=== PATIENT | female | born 1985 | race African-American/Black ===

== ENCOUNTER 2020-02-07 10:01 | Outpatient (CLI) | payer OTHER, SELFPAY ==
--- NOTE | ~2020-02-07 | XR_ITS ---
XR chest 2V DATE: 02/07/2020 10:18 INDICATION: Midline chest pain, discomfort. TECHNIQUE: PA and lateral views COMPARISON: None FINDINGS: Normal heart size. No hilar or mediastinal enlargement. Asymmetric density overlying the left apical region, of uncertain significance. Follow up chest radiographs are recommended, with CT thorax if this does not resolve. The lungs other paige appear clear of infiltrate or consolidation. No pleural effusion or pulmonary vascular congestio n or pneumothorax. Normal heart size. No hilar or mediastinal enlargement. IMPRESSION: Ill-defined asymmetric density overlying left apical area; recommend follow-up chest radi ographs, with CT thorax if this persists Reviewed, dictated and finalized at location A. IMPRESSION: Ill-defined asymmetric density overlying left apical area; recommen d follow-up chest radiographs, with CT thorax if this persists
== END 2020-02-07 10:02 | disposition home or self-care (01) ==
PROVIDERS: PCP Nurse Practitioner Family; Visit Provider Nurse Practitioner Family
DX: R07.89 Other chest pain (principal); R91.8 Other nonspecific abnormal finding of lung field
CPT/HCPCS: 71046